=== PATIENT | female | born 1995 | race Caucasian/White ===

== ENCOUNTER 2018-10-04 02:48 | Outpatient (CLI) | payer MEDICAID ==
[~2018-10-04] VITALS: Ht 165.1 cm; Wt 136.4 kg
[2018-10-04 03:00] VITALS: BP 130/75
== END 2018-10-04 04:45 | disposition home or self-care (01) ==
LOC: LDOP 02:48
PROVIDERS: ATTEND Obstetrics & Gynecology
DX: O42.92 Full-term premature rupture of membranes, unspecified as to length of time between rupture and onset of labor (principal); O99.89 Other specified diseases and conditions complicating pregnancy, childbirth and the puerperium; M54.5 Low back pain; Z3A.38 38 weeks gestation of pregnancy
CPT/HCPCS: 59025; 89060; 99211; G0463; Q0114